=== PATIENT | male | born 1995 | race African-American/Black ===

== ENCOUNTER 2017-08-31 20:36 | Emergency (ER) | payer OTHER ==
[~2017-08-31] VITALS: Ht 175.3 cm; Wt 123.5 kg
[2017-08-31] MEDS ORDERED: FLEXERIL10 MG PO (22:17)
[2017-08-31 22:42] VITALS: BP 160/118
== END 2017-08-31 23:11 | disposition home or self-care (01) ==
LOC: RME 20:36 → EME 20:36 → RME 23:11
DX: M54.9 Dorsalgia, unspecified (principal); M54.2 Cervicalgia; M25.569 Pain in unspecified knee; V49.60XD Unspecified car occupant injured in collision with unspecified motor vehicles in traffic accident, subsequent encounter; F17.200 Nicotine dependence, unspecified, uncomplicated
CPT/HCPCS: 99281; 99283; J1885